=== PATIENT | female | born 1975 | race Caucasian/White ===

== ENCOUNTER 2017-06-19 14:17 | Emergency (ER) | payer BC ==
[~2017-06-19] VITALS: Ht 167.6 cm; Wt 95.0 kg
[~2017-06-19 14:17] MED LIST: ALLEGRA60 MG PO; AMBIEN10 MG PO; CALCIUM 500 MG1 EACH PO; CLONAZEPAM0.5 MG PO; FLONASE16 G1 BOTH NARES; GLUCOSAMINE CH1 EAC2 PO; HERBAL; HYDROCODON-ACE1 EAC7 PO; LANSOPRAZOLE30 MG PO; LISINOPRIL-HCT1 EACH PO; MULTIPLE VITAM1 EAC1 PO; MULTIVITAMIN1 EAC2 PO; OMEPRAZOLE40 M1 PO; PAROXETINE HCL20 MG PO; PEPCID20 MG PO; ZOLPIDEM TARTRA10 MG PO
[2017-06-19 16:53] VITALS: BP 134/70
[2017-06-19] MEDS ORDERED: PERCOCET 5/31 TABLET PO (17:06)
== END 2017-06-19 18:14 | disposition home or self-care (01) ==
LOC: EME 14:17
DX: S42.031A Displaced fracture of lateral end of right clavicle, initial encounter for closed fracture (principal); W17.89XA Other fall from one level to another, initial encounter; Y92.008 Other place in unspecified non-institutional (private) residence as the place of occurrence of the external cause; I10 Essential (primary) hypertension; F17.200 Nicotine dependence, unspecified, uncomplicated
CPT/HCPCS: 73030; 99281; 99284; J2270